=== PATIENT | female | born 1975 | race Caucasian/White ===

== ENCOUNTER 2016-12-12 16:08 | Emergency (ER) | payer BC ==
[~2016-12-12] VITALS: Ht 162.6 cm; Wt 111.1 kg
[2016-12-12 16:34] LABS: ABSOLUTE NEUTROPHILS 10.2 thou/uL (1.4-8.2); BASOPHILS 0.5 % (0.0-2.0); HEMATOCRIT 40.9 % (37.0-47.0); HEMOGLOBIN 13.9 gm/dL (12.0-15.0); LYMPHOCYTES 15.8 % (24.0-44.0); MCH 28.2 pg (26.0-34.0); MCHC 33.9 g/dL (28.0-37.0); MCV 83.2 fL (80.0-100.0); MONOCYTES 4.2 % (1.0-8.0); PLATELET COUNT 278 thou/uL (150-400); POLYS 78.5 % (36.0-66.0); RBC 4.92 mil/uL (4.20-5.00); RDW 14.6 % (10.5-14.5)
[2016-12-12 16:37] LABS: MANUAL DIFF NO
[2016-12-12 16:42] LABS: CALCIUM 8.8 mg/dL (8.5-10.1); CREATININE 0.9 mg/dL (0.6-1.0); POTASSIUM 3.1 mmol/L (3.5-5.1)
[2016-12-12 16:47] LABS: ALBUMIN 3.9 g/dL (3.4-5.0); TOTAL BILIRUBIN 0.3 mg/dL (<0.1-1.0); TOTAL PROTEIN 8.2 g/dL (6.4-8.2); URINE BILIRUBIN NEGATIVE (Negative); URINE BLOOD 3+ (Negative); URINE COLOR YELLOW; URINE GLUCOSE-RANDOM* NEGATIVE (Negative); URINE KETONES 1+ (Negative); URINE LEUKOCYTES-REFLEX NEGATIVE (Negative); URINE PROTEIN (DIPSTICK) 2+ (Negative); URINE SPECIFIC GRAVITY >= 1.030 (1.003-1.035); URINE UROBILINOGEN 0.2 E.U./dl (0.2-1.0)
[2016-12-12 16:54] LABS: CASTS None Seen /LPF (None Seen); CRYSTALS None Seen /LPF (None Seen); SQUAMOUS 4-10 Moderate /LPF (0-3)
[2016-12-12 16:55] LABS: URINE WBC-REFLEX None Seen /HPF (0-5)
[2016-12-12] MEDS ORDERED: PHENERGAN 25 MG25 M1 PO (18:42)
[2016-12-12] MEDS ORDERED: FLOMAX0.4 MG PO (18:42)
[2016-12-12] MEDS ORDERED: HYDROCODONE-AP1 EAC6 PO (18:42)
[2016-12-12 19:30] VITALS: BP 139/88
== END 2016-12-12 19:32 | disposition home or self-care (01) ==
LOC: ER 16:08
PROVIDERS: Physician Assistant
DX: N20.0 Calculus of kidney (principal); E11.9 Type 2 diabetes mellitus without complications; Z98.890 Other specified postprocedural states; Z88.5 Allergy status to narcotic agent; Z88.0 Allergy status to penicillin; Z88.8 Allergy status to other drugs, medicaments and biological substances

== ENCOUNTER 2020-10-31 13:22 | Emergency (ER) | payer BC ==
[~2020-10-31] VITALS: Ht 162.6 cm; Wt 113.4 kg
[~2020-10-31 13:22] MED LIST: BACTRIM DS TAB1 EACH PO; FLOMAX0.4 MG PO; HYDROCODONE-AP1 EAC6 PO; KEFLEX500 MG PO; PHENERGAN 25 MG25 M1 PO
[2020-10-31] MEDS ORDERED: SYNTHROID112 MC1 PO (13:31)
[2020-10-31] MEDS ORDERED: ZOLOFT100 MG PO (13:32)
[2020-10-31] MEDS ORDERED: HYDROCHLOROTHIA50 MG PO (13:32)
[2020-10-31] MEDS ORDERED: ATENOLOL 50MG T50 MG PO (13:33)
[2020-10-31] MEDS ORDERED: DOXYCYCLINE 10100 MG PO (14:21)
[2020-10-31 14:23] VITALS: BP 145/70
== END 2020-10-31 14:23 | disposition home or self-care (01) ==
LOC: ER 13:22
DX: S61.210A Laceration without foreign body of right index finger without damage to nail, initial encounter (principal); S61.512A Laceration without foreign body of left wrist, initial encounter; S61.011A Laceration without foreign body of right thumb without damage to nail, initial encounter; Z79.899 Other long term (current) drug therapy; Z88.0 Allergy status to penicillin; Z88.5 Allergy status to narcotic agent; Z88.8 Allergy status to other drugs, medicaments and biological substances; W26.8XXA Contact with other sharp object(s), not elsewhere classified, initial encounter; Y93.89 Activity, other specified; Y92.89 Other specified places as the place of occurrence of the external cause; Y99.8 Other external cause status